=== PATIENT | female | born 1980 | race Hispanic/Latino ===

== ENCOUNTER 2016-03-16 12:37 | Inpatient (IN) | payer MEDICAID ==
[~2016-03-16] VITALS: Ht 142.2 cm; Wt 74.4 kg
[2016-03-16] MEDS ORDERED: Oxytocin 10 Unit/mL Inj IM PRN ×2 (13:05→20:05)
[2016-03-16] MEDS ORDERED: Methylergonovine 0.2 mg/mL Inj IM PRN ×2 (13:05→20:05)
[2016-03-16] MEDS ORDERED: Oxytocin 30 Units/500 mL LR 30 UNITS in IV Premix 1 EACH IV PRN ×3 (13:05→20:05)
[2016-03-16] MEDS ORDERED: Carboprost 250 mCg/mL Inj IM PRN ×2 (13:05→20:05)
[2016-03-16] MEDS ORDERED: Sodium Chloride LOK Flush 10 mL Syringe IVFLUSH PRN (13:05)
[2016-03-16] MEDS ORDERED: Betameth Ace-Betam SodPhos 6 mg/mL 5 mL Inj IM ONE ×2 (13:05)
[2016-03-16] MEDS ORDERED: Hemorrhage Kit, Post Partum XX ONE ×2 (13:05→20:05)
[2016-03-16 13:40] LABS: Mean Corpuscular Hemoglobin 29.4 pg (27.0-35.0); Mean Corpuscular Volume 87.7 fL (81-100)
[2016-03-16] MEDS ORDERED: PREN1TAB87 PO (13:53)
[2016-03-16] MEDS: Lactated Ringer's 1,000 ML IV PRN ×2 (14:21→16:11)
[2016-03-16] MEDS ORDERED: fentaNYL-PF 50 mCg/mL 2 mL Inj ONE (19:22)
[2016-03-16] MEDS ORDERED: fentaNYL-PF 50 mCg/mL 2 mL Inj IVPUSH ONE (19:25)
[2016-03-16] MEDS ORDERED: Lactated Ringer's 1,000 ML IV SCH (20:01)
[2016-03-16] MEDS ORDERED: HYDROcodone-APAP 5-325 mg Tablet PO PRN (20:05)
[2016-03-16] MEDS ORDERED: Benzocaine (Dermoplast) 20% 60 Gm Spray TOPICAL PRN (20:05)
[2016-03-16] MEDS ORDERED: LANOlin HPA 7 Gm Ointment TOPICAL PRN (20:05)
[2016-03-16] MEDS ORDERED: Witch Hazel-Glycerin Pads TOPICAL PRN (20:05)
--- NOTE | 2016-03-16 21:16 | PCM.OBVAG ---
Vaginal Delivery Date of Service Mar 16, 2016 Pre Operative Diagnosis Pre Operative Diagnosis labor and premature rupture of membranes Post Operative Diagnosis Post Operative Diagnosis labor, delivered Procedure Obstetical Procedure: Normal Spontaneous Vaginal Delivery Mechanical Operator/Rim Turning Machine Operator Provider and Rim Turning Machine Operator: Rogerio Beck DO Indication for Procedure Indication for Procedure Patient is a 35 yo now who presented to Labor and Delivery at 36 wk 6 days with spontaneous premature rupture of membranes She had progressive labor augmented with oxytocin. She did not desire an epidural however did receive IV fentanyl. She made normal progress through labor and began pushing at 19:28. Neonatology was called and was present for the . She began pushing. FHT was category I. Induction: Active labor, Pitocin augmentation, SROM, Progressed normally through labor Findings Obstetrical Findings: (Male), Weight ( 2451 grams), Presentation (BRICE), 1 minute (6), 5 minutes (2), 10 minutes (8), Placenta ( Intact/Normal) Analgesia/Medications Obstetrical Anesthesia: IV pain medication Procedure Details Procedure Details A sterile drape was placed under the patient's buttocks and with expulsive efforts, she delivered head over an intact perineum. No nuchal cord. The rest of the body was delivered. The baby was placed on maternal abdomen, skin to skin. Warming and stimulating maneuvers were applied. After a minute, the cord was clamped, and cut. was moved to the warmer under the care of the tare worker. The infant was delivered at 19:51. The placenta then delivered spontaneously intact at 19:54 with a three vessel cord. Uterus firmed with manual external massage. The perineum was examined and there was no tear. Sponge counts were correct x2 at the close of the procedure. Placenta sent to pathology for premature rupture of membranes. The patient and tolerated the procedure well and pt is stable in her room, in nursery. Specimen Placenta sample for delivery Specimens: Placenta IV Intake/Output Catheters: None Blood Loss & Administration Estimated Blood Loss: 250 Post Procedure Plan Post delivery Condition: Mom stable VTE Prophylaxis: SCDs Attending Statement I was present for the entire procedure and agree with the above documentations. copies to: oRney Zepeda MD, ERIKA R DO Mar 16, 2016 20:16 Rogerio Ballesteros MD Mar 18, 2016 09:44
--- NOTE | 2016-03-16 23:04 | HP ---
[address] [address] HISTORY AND PHYSICAL PATIENT: SANDRA ROCA I : 1980 MR#: [id number] ADMIT: 03/16/2016 JOB ID: [id number] ADMISSION DIAGNOSIS: Premature rupture of membranes. HISTORY OF PRESENT ILLNESS: The patient is a 35-year-old, 5, para 3-0-1-3, at 36 weeks and 3 days gestational age by 16 week ultrasound with undetermined LMP, final due date is April 10, 2016 presents to the office this morning with leakage of fluid that started at 4 a.m. Upon office examination, the patient was confirmed to have premature rupture of membranes and was directly admitted to the hospital. Denied any vaginal bleeding. Reports movements. PAST OBSTETRICAL HISTORY: In 2002, 2004 and 2007, 40 weeks gestational age pregnancies ended with spontaneous vaginal deliveries with no complications. In 2014, the patient had six weeks spontaneous with no suction D and C and the current . PAST GYNECOLOGIC HISTORY: No history of abnormal Pap smears. No history of STDs. PAST MEDICAL HISTORY: Depression and chronic headache. MEDICATION: No current medications as well. PAST SURGICAL HISTORY: Insignificant. ALLERGIES: No known drug allergies. MEDICATIONS: vitamins. SOCIAL HISTORY: Denied any alcohol consumption. Denied any drugs of abuse. Denied any cigarette smoking. FAMILY HISTORY: Significant for diabetes in patient's father. Current was complicated with the following. 1. Premature rupture of membranes. 2. BMI of 33 at intake. 3. Low-lying placenta that resolved on a follow-up ultrasound with lower edge of the placenta more than 2.2 cm from the cervical os and chronic headaches and depression with no medications. LABORATORIES: O-positive, antibody negative, rubella immune, serology nonreactive, hepatitis B surface antigen negative. HIV nonreactive. Gonorrhea and Chlamydia cultures negative. GBS cultures negative. Quad screen negative. PHYSICAL EXAMINATION: Patient is alert, oriented x3. Vital signs are 129/83 for blood pressure,respirations are 20, pulse is 81, temperature 37.2 degrees centigrade. Heart is regular rate and rhythm. Positive S1, S2. Lungs clear to auscultation bilaterally. Abdomen: Gravid. Uterus nontender. Positive bowel sounds. Bedside ultrasound in the office confirmed vertex presentation. Lower extremities: No calf tenderness appreciated bilaterally. Cervical exam is 3 cm dilated, cervix 60% effaced, -3 station, vertex presentation. Confirmed as well. Sterile speculum exam in the office before digital exam showed positive pooling, positive Nitrazine test and positive ferning. heart tracing at triage showing a baseline of 140 beats per minute, positive accelerations, no decelerations, moderate variability, category 1 heart tracing. ASSESSMENT AND PLAN: The patient is a 25-year-old 5, para 3-0-1-3, at 36 weeks and 3 days gestational age by 16 week ultrasound admitted for premature rupture of membranes. 1. Discussed ACOG recommendations for betamethasone up to 36 weeks and 6 days. Patient agreed. Will administer one dose of betamethasone for lung maturity. 2. Consider Pitocin augmentation. 3. GBS cultures negative. 4. Category 1 heart tracing. Will consider internal monitoring on a p.r.n. basis. 5. Discussed intrapartum analgesia options with the patient. She is still undecided. All the above was discussed in details with the patient in the presence of a health actuary and patient agreed to the above. JUDI
[2016-03-17 07:15] LABS: Mean Corpuscular Hemoglobin 29.2 pg (27.0-35.0); Mean Corpuscular Volume 88.6 fL (81-100)
[2016-03-17] MEDS ORDERED: Ascorbic Acid 500 mg Tablet PO SCH (08:00)
--- NOTE | 2016-03-17 11:24 | PCM.DIOB ---
Obstetrical Disch Instruction Date of Service: Mar 17, 2016 Dates of Hospitalization Date of Hospital Admission Mar 16, 2016 at 12:38 Providers Admitting Physician: Roney Zepeda MD Primary Care Physician: Elisabeth Tran MD Attending Physician: Roney Zepeda MD Discharge Diagnosis Discharge Diagnosis day 1 S/P at [id number]. Anemia Problems: Diet Discharge Diet: No restrictions Activity Discharge Activity-General: Pelvic Rest for 6 weeks, No lifting >10 pounds for 4-6 weeks Dressing and Incisional Care Hygiene: May shower Follow Up Plan Follow-up Provider (F9): Roney Zepeda MD Follow-up appointment: Weeks (2) Call your provider for: Fever or Chills, Shortness of breath, Heavy vaginal bleeding, Other (excessive pain not controlled with pain medications.) Roney Zepeda MD Mar 17, 2016 11:23
[2016-03-17] MEDS ORDERED: PREN1TAB87 PO (11:26)
[2016-03-17] MEDS ORDERED: IBUP-1827 PO (11:26)
[2016-03-17] MEDS ORDERED: FERR-74 PO (11:26)
[2016-03-17] MEDS ORDERED: DOCU-41 PO (11:26)
[2016-03-17] MEDS ORDERED: Ascorbic Acid PO (11:26)
[2016-03-17 12:30] VITALS: BP 109/69; PULSE 68; RESP 16
--- NOTE | 2016-03-17 16:03 | DIS ---
[address] [address] DISCHARGE SUMMARY PATIENT: SANDRA ROCA I : 1980 MR#: [id number] ADMIT: 03/16/2016 JOB ID: [id number] DIS: 03/17/2016 ADMISSION DIAGNOSIS: Premature rupture of membranes; induction of labor with successful vaginal delivery. For further details, please refer to the fully dictated notes. DIscharge diagnosis: 1- day #1 status post labor and delivery at 36 weeks and 3 days. 2- anemia. On the day of discharge, the patient had no complaints. Voiding, ambulating, tolerating p.o. intake. She was pumping breast milk, trying to continue with breast feeding. OBJECTIVE: Vital signs: 109/69 for blood pressure. Respirations are 16. Pulse is 68. Temperature of 36.6 degrees centigrade. Heart is regular rate and rhythm. Positive S1, S2. Lungs clear to auscultation bilaterally. Abdomen firm. Uterine fundus palpated above the umbilicus. Nontender. Positive bowel sounds. Perineum: No active bleeding. Lower extremities: No calf tenderness appreciated bilaterally. H and H this morning is 9.7 and 29.4, platelets are 253, white blood count 16.9. DISCHARGE PLAN: The patient will be discharged home in a stable condition. Will follow up with Dr. Zepeda in the office in two weeks. Instructed to have nothing in the vagina for six weeks. No heavy lifting more than baby's weight. Instructed to call for fever, chills, severe abdominal pain uncontrolled with pain medication, heavy vaginal bleeding, or any other concerning symptoms. DISCHARGE MEDICATIONS: 1. Ibuprofen 600 mg every 6 hours as needed for pain. 2. Ferrous sulfate 325 mg twice daily. 3. Vitamin C 500 mg twice daily. 4. Colace 100 mg twice daily. 5. vitamins once daily. The patient understood her discharge instructions. She will comply with her discharge plan. JUDI
--- NOTE | 2016-03-19 13:58 | PATH ---
SURGICAL PATHOLOGY Attending Physician:Roney Zepeda MD CASE STATUS: Signed Out PATIENT NAME: SANDRA ROCA I. PID: [id number] : 1980 DATE COLLECTED:03/16/2016 00:00 SPECIMEN: Placenta CLINICAL HISTORY: A: PLACENTA FINAL DIAGNOSIS: 1.PLACENTA WITH UMBILICAL CORD AND MEMBRANES: 1. PLACENTA: 360 GRAMS WITH FOCAL ACUTE INFLAMMATION OF THE CHORIONIC PLATE WITH FOCAL ASSOCIATED PHLEBITIS. NEGATIVE FOR VILLITIS. NEGATIVE FOR EVIDENCE OF INFARCTION. 2. UMBILICAL CORD: 11.2 CM IN LENGTH WITH THREE NORMAL BLOOD VESSELS. CORD IS ATTACHED 5.5 CM FROM THE PLACENTAL EDGE. FOCAL ACUTE ARTERITIS AND PHLEBITIS. 3. MEMBRANES: DIFFUSE ACUTE CHORIONITIS. MEMBRANES RUPTURED 2.5 CM FROM THE FREE PLACENTAL EDGE. ICD10 CODE O41.1 GROSS DESCRIPTION: The specimen is received in formalin, labeled with the patient's name and consists of an intact placenta and includes placental disc (360 g, 16.5 x 14.0 x 2.5 cm), umbilical cord (length-11.2 cm, diameter-1.2 x 1.0 cm) and membranes. The membranes are ruptured 2.5 cm from the free edge of the placenta and are thick and predominantly opaque. The umbilical cord is attached 5.5 cm from the edge of the placenta and contains 3 vessels. The surface is smooth and shiny with no evidence of meconium. The maternal surface is dark maroon with normal cotyledon formation. The placental disc is spongy with no hematomas, infarcts, nodules, masses, or lesions. Section code: (A) edge of placenta with membranes, umbilical cord; (B, C) placenta, 2 full thickness sections. 03/18/16 JM MICRO DESCRIPTION: See diagnosis. ICD-9 CODES: CPT CODES: 1: 74810 Electronically Signed Out Shakeel Montesinos MD Formerly [facility] Pathology [facility] [address], [place] [address] Technical component performed at [facility], [facility] [address], [place], [address]
== END 2016-03-17 13:00 | disposition home or self-care (01) | DRG 560 ==
LOC: FBCO 12:37 → FBC 12:38
PROVIDERS: ADMIT Obstetrics & Gynecology; ATTEND Obstetrics & Gynecology
PROC: 10E0XZZ Delivery of Products of Conception, External Approach (ICD-10-PCS; principal; 2016-03-16)
DX: O42.013 Preterm premature rupture of membranes, onset of labor within 24 hours of rupture, third trimester (principal); O90.81 Anemia of the puerperium; Z3A.36 36 weeks gestation of pregnancy; Z37.0 Single live birth; O76 Abnormality in fetal heart rate and rhythm complicating labor and delivery